=== PATIENT | female | born 1985 | race Caucasian/White ===

== ENCOUNTER 2016-07-12 02:51 | Observation (INO) | payer OTHER ==
[2016-07-12] VITALS (23 sets, daily range): BP systolic 97–147; BP diastolic 52–79; PULSE 66–112; RESP 12–27; Ht 167.6 cm; Wt 55.9 kg
[~2016-07-12] VITALS: Ht 167.6 cm; Wt 55.9 kg
[2016-07-12] MEDS ORDERED: SOD CHLORIDE 0.9% 500 ML IV STA (05:10)
[2016-07-12 05:47] LABS: ADD SCAN DIFF NO
[2016-07-12] MEDS ORDERED: MULTI PO (05:55)
[2016-07-12 06:18] LABS: ALBUMIN 4.5 g/dl (3.3-4.9); ALBUMIN/GLOBULIN RATIO 1.5; BILIRUBIN,INDIRECT 0.5 mg/dl (0-1.1); BILIRUBIN,TOTAL 0.5 mg/dl (0.2-1.3); CALCIUM 9.3 mg/dl (8.4-10.2); CREATININE 0.7 mg/dl (0.44-1.00); POTASSIUM 3.8 mmol/L (3.5-5.1); TOTAL PROTEIN 7.5 g/dl (6.1-8.1)
[2016-07-12 06:19] LABS: BASOPHILS % 0.2 % (0.0-2.0); EOSINOPHILS % 0.3 % (0.0-7.0); HEMOGLOBIN 12.6 g/dl (12.0-16.0); LYMPHOCYTES # 1.2 10^3/ul (0.8-2.9); LYMPHOCYTES % 9.9 % (15.0-51.0); MEAN CORPUSCULAR HEMOGLOBIN 30.2 pg (29.0-33.0); MEAN CORPUSCULAR HGB CONC 33.2 g/dl (32.0-37.0); MEAN CORPUSCULAR VOLUME 91.1 fl (82.0-101.0); MEAN PLATELET VOLUME 9.5 fl (7.4-10.4); MONOCYTE # 0.9 10^3/ul (0.3-0.9); NEUTROPHIL # 10.3 10^3/ul (1.6-7.5); NEUTROPHILS % 82.3 % (39.0-77.0); PLATELET COUNT 259 10^3/UL (140-415); RED BLOOD COUNT 4.17 10^6/ul (4.20-5.40); RED CELL DISTRIBUTION WIDTH 12.2 % (11.5-14.5); WHITE BLOOD COUNT 12.5 10^3/ul (4.8-10.8)
[2016-07-12] MEDS ORDERED: ONDANSETRON 4 MG INJ IV STA (06:22)
[2016-07-12] MEDS ORDERED: morphine 4 MG/ML VIAL IV STA (06:22)
[2016-07-12 06:29] LABS: ADD UMIC YES; URINE BILIRUBIN (Dip) NEGATIVE (NEGATIVE); URINE BLOOD (Dip) NEGATIVE (NEGATIVE); URINE COLOR LT. YELLOW (YELLOW); URINE GLUCOSE (Dip) NEGATIVE (NEGATIVE); URINE KETONES (Dip) NEGATIVE (NEGATIVE); URINE LEUKOCYTE ESTERASE (Dip) TRACE (NEGATIVE); URINE NITRITE (Dip) NEGATIVE (NEGATIVE); URINE TOTAL PROTEIN (Dip) NEGATIVE (NEGATIVE); URINE UROBILINOGEN (Dip) 0.2 E.U./dL (0.1-1.0)
[2016-07-12 06:51] LABS: URINE RBCS 0-2 /HPF (0)
[2016-07-12 06:52] LABS: BACTERIA,URINE RARE
--- NOTE | 2016-07-12 07:28 | RADRPT ---
PROCEDURE: CT abdomen and pelvis without contrast. CLINICAL INDICATION: Abdominal pain. TECHNIQUE: CT scan of the abdomen and pelvis without contrast was performed on a multi-slice CT [facility] . Oral contrast was also administered. Sagittal and coronal reformatted images were obtained from the axial source images. One or more of the following dose reduction techniques were used: - Automated exposure control. - Adjustment of the mA and/or kV according to patient size. Use of iterative reconstruction technique. DLP 326.0 mGycm. CTDIvol 5.8 mGy COMPARISON: None FINDINGS: The lung bases are clear. There is limited evaluation of the solid viscera for lack of IV contrast. There is a dilated tubular structure extending from the cecum consistent with a likely enlarged appe ndix and measures up to 11 mm in diameter. It has adjacent trace fat stranding and fluid. There is no CT evidence for free air free fluid or organized fluid collection to suggest perforation at this time. There is no evidence of an obstruction. The appendix is located posterior to the ascending colon. There is a fecal filled colon. There is normal density of the liver with no gross focal lesion or biliary ductal dilatation. The gallbladder is unremarkable without inflammation. The spleen is unremarkable without mass. The adrenal glands are within normal limits without mass. The kidneys are symmetric bilaterally with no evidence of renal or ureteral calculi. There is no hy dronephrosis or perinephric stranding. The pancreas is unremarkable without focal lesion or surrounding inflammatory changes. There are no enlarged lymph nodes. The aorta is unremarkable and there is no acute osseous abnormality. Degenerative changes are seen w ithin the lumbar spine. The uterus and adnexal structures within normal limits. IMPRESSION: Findings are consistent with acute appendicitis. The appendix is located posterior to the ascending colon and measures up to 11 millimeters in diameter. There is no CT evidence of perforation or abs cess at this time. There is a fecal filled colon. No evidence of renal or ureteral calculi or hydronephrosis. A call report was made to nurse Rodriguez at 07/12/2016 7:27:49 AM RPTAT: AA .Viridiana Ballesteros MD, Date Time Electronically viewed and signed by .Viridiana Ballesteros MD, on 07/12/2016 07:28 .[place]/
[2016-07-12] MEDS ORDERED: AMPICILLIN/SULB 3 GM/NS (PMX) 100 ML IVPB ONE (08:30)
[2016-07-12] MEDS ORDERED: ACETAMINOPHEN 325 MG TAB PO PRN ×3 (09:00→20:00)
[2016-07-12] MEDS ORDERED: ONDANSETRON 4 MG INJ IV PRN ×4 (09:00→20:00)
[2016-07-12] MEDS ORDERED: SOD CHLORIDE 0.9% 1,000 ML IV SCH (09:20)
[2016-07-12] MEDS ORDERED: BISACODYL 10 MG SUPP PR PRN (09:30)
[2016-07-12] MEDS ORDERED: DOCUSATE SODIUM 100 MG CAP PO PRN (09:30)
[2016-07-12] MEDS ORDERED: ACETAMINOPHEN 650 MG SUPP PR PRN (09:30)
[2016-07-12] MEDS ORDERED: HYDROCODONE/APAP (5/325) TAB PO PRN ×2 (09:30→20:00)
[2016-07-12] MEDS ORDERED: NACL 0.9% 3 ML SYG IV SCH (09:30)
[2016-07-12] MEDS ORDERED: morphine 2 MG INJ IV PRN (09:30)
[2016-07-12] MEDS ORDERED: MAGNESIUM HYDROXIDE 30ML CUP PO PRN (09:30)
--- NOTE | 2016-07-12 10:36 | ERA ---
ER Documentation Chief Complaint Date/Time DATE: 07/12/16 TIME: 10:35 Chief Complaint GEN AP SINCE YESTERDAY +N.V CHILLS HPI Patient is a 31-year-old female with no medical problems who presents with abdominal pain. The abdominal pain started last night at 6 PM. She felt like she could not get comfortable. She felt like the pain was in the upper abdomen. The pain is constant and bit better now. She has had no treatment as of yet. She denies vomiting or diarrhea. She has no fevers. ROS All systems reviewed and are negative except as per history of present illness. Medications Home Meds Reported Medications Multivitamins* (Theragran*) 1 Tab Tab, 1 TAB PO DAILY, TAB 07/12/16 Allergies Allergies: Coded Allergies: No Known Allergy (Unverified , 07/12/16) PMhx/Soc Medical and Surgical Hx: pt denies Medical Hx, pt denies Surgical Hx History of Surgery: No Anesthesia Reaction: No Hx Neurological Disorder: No Hx Respiratory Disorders: No Hx Cardiac Disorders: No Hx Psychiatric Problems: No Hx Miscellaneous Medical Probl: No Hx Alcohol Use: No Hx Substance Use: No Hx Tobacco Use: No Smoking Status: Never smoker FmHx Family History: diabetes Physical Exam Vitals Vital Signs Date Time Temp Pulse Resp B/P Pulse Ox O2 Delivery O2 Flow Rate FiO2 07/12/16 03:04 99.2 112 20 130/73 97 Physical Exam Const: Mild distress secondary to pain Head: Atraumatic Eyes: Normal Conjunctiva ENT: Normal External Ears, Nose and Mouth. Neck: Full range of motion..~ No meningismus. Resp: Clear to auscultation bilaterally Cardio: Regular rate and rhythm, no murmurs Abd: Soft, right lower quadrant tenderness to palpation with guarding Skin: No petechiae or rashes Back: No midline or flank tenderness Ext: No cyanosis, or edema Neur: Awake and alert Psych: Normal Mood and Affect Result Diagram: 07/12/16 0530 07/12/16 0530 Results 24 hrs Laboratory Tests Test 07/12/16 05:20 07/12/16 05:30 Urine Color LT. YELLOW Urine Clarity CLEAR Urine pH 7.5 Urine Specific Ros[place] 1.015 Urine Ketones NEGATIVE Urine Nitrite NEGATIVE Urine Bilirubin NEGATIVE Urine Urobilinogen 0.2 E.U./dL Urine Leukocyte Esterase TRACE Urine Microscopic RBC 0-2/HPF Urine Microscopic WBC 0-2/HPF Urine Epithelial Cells RARE Urine Bacteria RARE Urine Hemoglobin NEGATIVE Urine Glucose NEGATIVE% Urine Total Protein NEGATIVE White Blood Count 12.510^3/ul Red Blood Count 4.1710^6/ul Hemoglobin 12.6g/dl Hematocrit 38.0% Mean Corpuscular Volume 91.1fl Mean Corpuscular Hemoglobin 30.2pg Mean Corpuscular Hemoglobin Concent 33.2g/dl Red Cell Distribution Width 12.2% Platelet Count 49717^3/UL Mean Platelet Volume 9.5fl Neutrophils % 82.3% Lymphocytes % 9.9% Monocytes % 7.0% Eosinophils % 0.3% Basophils % 0.2% Nucleated Red Blood Cells % 0.0/100WBC Neutrophils # 10.310^3/ul Lymphocytes # 1.210^3/ul Monocytes # 0.910^3/ul Eosinophils # 0.010^3/ul Basophils # 0.010^3/ul Nucleated Red Blood Cells # 0.010^3/ul Sodium Level 138mmol/L Potassium Level 3.8mmol/L Chloride Level 107mmol/L Carbon Dioxide Level 22mmol/L Anion Gap 13 Blood Urea Nitrogen 11mg/dl Creatinine 0.70mg/dl Glucose Level 102mg/dl Calcium Level 9.3mg/dl Total Bilirubin 0.5mg/dl Direct Bilirubin 0.00mg/dl Indirect Bilirubin 0.5mg/dl Aspartate Amino Transf (AST/SGOT) 16IU/L Alanine Aminotransferase (ALT/SGPT) 24IU/L Alkaline Phosphatase 84IU/L Total Protein 7.5g/dl Albumin 4.5g/dl Globulin 3.00g/dl Albumin/Globulin Ratio 1.50 Lipase 57U/L Serum HCG, Qualitative NEGATIVE Current Medications Medications (Trade) Dose Ordered Sig/Heather Route PRN Reason Start Time Stop Time Status Last Admin Dose Admin Sodium Chloride (NS) 500 ml @ 500 mls/hr Q1H STAT IV 07/12/16 05:10 07/12/16 06:09 DC 07/12/16 05:43 Morphine Sulfate (morphine) 4 mg ONCE STAT IV 07/12/16 06:22 07/12/16 06:23 DC 07/12/16 07:13 Ondansetron HCl 4 mg 4 mg ONCE STAT IV 07/12/16 06:22 07/12/16 06:23 DC 07/12/16 07:12 Ampicillin Sodium/ Sulbactam Sodium (Unasyn 3gm/NS (Pmx)) 100 ml @ 100 mls/hr ONCE ONCE IVPB 07/12/16 08:30 07/12/16 09:29 DC 07/12/16 09:11 Ondansetron HCl (Zofran Inj) 4 mg BRIDGE ORDER PRN IV NAUSEA AND/OR VOMITING 07/12/16 09:00 07/12/16 09:28 DC Acetaminophen 650 mg 650 mg ER BRIDGE PRN PO MILD PAIN/FEVER 07/12/16 09:00 07/12/16 09:28 DC Ampicillin Sodium/ Sulbactam Sodium 100 ml @ 100 mls/hr Q6 IVPB 07/12/16 12:00 Sodium Chloride (NS) 1,000 ml @ 80 mls/hr [id number] IV 07/12/16 09:20 IV Flush (NS 3 ml) 3 ml PER PROTOCOL IV 07/12/16 09:30 Ondansetron HCl (Zofran Inj) 4 mg Q6H PRN IV NAUSEA AND/OR VOMITING 07/12/16 09:30 Acetaminophen (Tylenol Tab) 650 mg Q6H PRN PO PAIN LEVEL 1-3 OR FEVER 07/12/16 09:30 Acetaminophen (Tylenol Supp) 650 mg Q6H PRN [place] PAIN LEVEL 1-3 OR FEVER 07/12/16 09:30 Acetaminophen/ Hydrocodone Bitart ([place] (5/325)) 1 tab Q6H PRN PO MODERATE PAIN LEVEL 4-6 07/12/16 09:30 Acetaminophen/ Hydrocodone Bitart ([place] (5/325)) 2 tab Q6H PRN PO SEVERE PAIN LEVEL 7-10 07/12/16 09:30 Morphine Sulfate (morphine) 2 mg Q4H PRN IV SEVERE PAIN LEVEL 7-10 07/12/16 09:30 Docusate Sodium (Colace) 100 mg Q12H PRN PO CONSTIPATION 07/12/16 09:30 Magnesium Hydroxide (Milk Of Mag) 30 ml DAILY PRN PO CONSTIPATION 07/12/16 09:30 Bisacodyl (Dulcolax Supp) 10 mg DAILY PRN [place] CONSTIPATION 07/12/16 09:30 Famotidine (Pepcid Iv) 20 mg Q12 IV 07/12/16 21:00 Procedures/MDM CT of the abdomen pelvis shows acute appendicitis per radiology. Patient is a 31-year-old female presents with acute abdominal pain. She had right lower quadrant tenderness to palpation on exam. Her white blood cell count is elevated at 12.5. She had a CT scan which showed acute appendicitis. The patient was given Unasyn IV. I doubt sepsis at this time. I spoke with Dr. Can surgeon on-call who will see the patient in consultation. I spoke with Dr. Sharma the panel team for admission to a medical surgical bed as the [facility] has given authorization to admit to [facility]. Departure Diagnosis: Primary Impression: Abdominal pain Qualified Code: R10.31 - Right lower quadrant abdominal pain Additional Impression: Appendicitis Qualified Code: K35.80 - Acute appendicitis, unspecified acute appendicitis type Condition: SIS Cano MD July 12, 2016 10:36
[2016-07-12] MEDS ORDERED: AMPICILLIN/SULB 3 GM/NS (PMX) 100 ML IVPB SCH ×2 (12:00→14:00)
--- NOTE | 2016-07-12 15:06 | HP ---
Date/Time of Note Date/Time of Note DATE: 07/12/16 TIME: 14:55 Assessment/Plan VTE Prophylaxis VTE Prophylaxis Intervention: SCD's Assessment/Plan Chief Complaint/Hosp Course Impression and plan 1. Acute appendicitis. Will place patient on IV hydration and antibiotics. Continue with analgesics. Await surgeon input. Continue inpatient monitoring. 2. Leukocytosis secondary to #1. Remains with low-grade fever transfer to at time this time. Will provide with antipyretics as needed Admission process 40 minutes Discussed plan of care with Dr. Sharma Problems: HPI/ROS Admit Date/Time Admit Date/Time July 12, 2016 at 08:46 Hx of Present Illness this is a 31-year-old female with no reported past medical history came to [facility] due to reports of abdominal pain. According to the patient she started to have abdominal pain around 5 PM one day prior to admission. She reports she was driving home and was in her normal state of health. She did report that she had worsening abdominal pain more notable on her right lower abdominal quadrant that radiated to her left side. No nausea vomiting associated with it. She denied any chest pain or fevers or any shortness of breath or any associated symptoms. Her pain got worse with eating and as such she came to [facility] for further evaluation. Upon examination she had a CT scan of abdomen and pelvis that did show clinical findings that consistent of appendicitis. She was placed on IV hydration and provided with appropriate analgesics and antibiotics. Currently the patient does report that her pain is 3 out of 10 in intensity. She reports that her relief. We will evaluate her for the aformentiond issues ROS 12 point review of systems obtained and entirely negative that mentioned in the history of present illness PMH/Family/Social Past Medical History Medical/surgical history 1. Reported eye surgery at age 6 on right side Family History Significant Family History: other (Mother: Diabetes, father: CAD) Social History Alcohol Use: none Smoking Status: Never smoker Drug Use: none Exam/Review of Systems Vital Signs Vitals Vital Signs Date Time Temp Pulse Resp B/P Pulse Ox O2 Delivery O2 Flow Rate FiO2 07/12/16 14:00 99.2 95 20 112/66 100 Exam Constitutional: alert, oriented Psych: nl mood/affect Head: normocephalic Eyes: nl conjunctiva Neck: non-tender, supple Respiratory: clear to auscultation Cardiovascular: regular rate and rhythm Gastrointestinal: soft, tender (More notably on right lower abdominal quadrant) Musculoskeletal: nl extremities to inspection Extremities: normal pulses Neurological: L[employer]CH[employer] WORKER II-XII intact, nl mental status, nl speech Skin: nl turgor Labs Result Diagram: 07/12/16 0530 07/12/16 0530 Medications Medications Current Medications Sodium Chloride (NS) 1,000 ml @ 80 mls/hr [id number] IV Last administered on t 12:30; Admin Dose 80 MLS/HR; Start 07/12/16 at 09:20 Ondansetron HCl (Zofran Inj) 4 mg Q6H PRN IV NAUSEA AND/OR VOMITING; Start 07/12 at 09:30 Acetaminophen (Tylenol Tab) 650 mg Q6H PRN PO PAIN LEVEL 1-3 OR FEVER; Start at 09:30 Acetaminophen (Tylenol Supp) 650 mg Q6H PRN [place] PAIN LEVEL 1-3 OR FEVER; Start 07/12/16 at 09:30 Acetaminophen/ Hydrocodone Bitart ([place] (5/325)) 1 tab Q6H PRN PO MODERATE PAIN LEVEL 4-6; Start 07/12/16 at 09:30 Acetaminophen/ Hydrocodone Bitart ([place] (5/325)) 2 tab Q6H PRN PO SEVERE PAIN LEVEL 7-10; Start 07/12/16 at 09:30 Morphine Sulfate (morphine) 2 mg Q4H PRN IV SEVERE PAIN LEVEL 7-10; Start at 09:30 Docusate Sodium (Colace) 100 mg Q12H PRN PO CONSTIPATION; Start 07/12/16 at 09: 30 Magnesium Hydroxide (Milk Of Mag) 30 ml DAILY PRN PO CONSTIPATION; Start at 09:30 Bisacodyl (Dulcolax Supp) 10 mg DAILY PRN [place] CONSTIPATION; Start 07/12/16 at 09: 30 Famotidine 20 mg 20 mg Q12 IV ; Start 07/12/16 at 21:00 Ampicillin Sodium/ Sulbactam Sodium (Unasyn 3gm/NS (Pmx)) 100 ml @ 100 mls/hr Q6 IVPB ; Start 07/12/16 at 14:00 JONNIE ZAZUETA July 12, 2016 15:05
[2016-07-12] MEDS ORDERED: LIDOCAINE 1% (MPF) 30 ML INJ ONE (19:20)
[2016-07-12] MEDS ORDERED: ROCURONIUM 50 MG INJ ONE (19:26)
[2016-07-12] MEDS ORDERED: MIDAZOLAM 1 MG/ML 2 ML INJ ONE ×2 (19:26→20:20)
[2016-07-12] MEDS ORDERED: PROPOFOL 20 ML ONE (19:26)
[2016-07-12] MEDS ORDERED: METOCLOPRAMIDE 10 MG INJ ONE (19:27)
[2016-07-12] MEDS ORDERED: HYDROmorphONE 2 MG/ML SYG ONE (19:42)
[2016-07-12] MEDS ORDERED: KETOROLAC 30 MG INJ ONE (19:55)
[2016-07-12] MEDS ORDERED: GLYCOPYRROLATE 0.4 MG INJ ONE (19:55)
[2016-07-12] MEDS ORDERED: NEOSTIGMINE 3 MG/3 ML SYRINGE ONE (19:55)
[2016-07-12] MEDS ORDERED: BUPIVACAINE 0.25%/EPI (SDV) 30 ML INJ INJ ONE (19:57)
[2016-07-12] MEDS ORDERED: MEPERIDINE 25 MG INJ IV PRN (20:00)
[2016-07-12] MEDS ORDERED: HYDROmorphONE (0.2 MG/ML) 10ML SYG IV PRN ×3 (20:00)
[2016-07-12] MEDS ORDERED: DIPHENHYDRAMINE 50 MG INJ IV PRN (20:00)
[2016-07-12] MEDS ORDERED: METOCLOPRAMIDE 10 MG INJ IV PRN (20:00)
[2016-07-12] MEDS ORDERED: MIDAZOLAM 1 MG/ML 2 ML INJ IV ONE (20:30)
[2016-07-12] MEDS: FAMOTIDINE 20 MG INJ IV SCH (22:51)
[2016-07-12] MEDS: D5-NS + KCL 20 MEQ 1,000 ML IV SCH (22:52)
[2016-07-12] MEDS: PIPER-TAZO 3.375 GM IV (PMX) 100 ML IVPB SCH (23:52)
[2016-07-13] MEDS: AMPICILLIN/SULB 3 GM/NS (PMX) 100 ML IVPB SCH ×2 (00:42→06:12)
[2016-07-13] MEDS: D5-NS + KCL 20 MEQ 1,000 ML IV SCH ×2 (05:04→17:39)
[2016-07-13] MEDS: PIPER-TAZO 3.375 GM IV (PMX) 100 ML IVPB SCH ×4 (05:34→23:46)
[2016-07-13] MEDS: ENOXAPARIN 40 MG/0.4 ML SYG SC SCH (06:41)
[2016-07-13 06:46] LABS: ADD SCAN DIFF NO
[2016-07-13 06:48] LABS: BASOPHILS % 0.3 % (0.0-2.0); EOSINOPHILS % 0.4 % (0.0-7.0); HEMATOCRIT 30.4 % (37.0-47.0); HEMOGLOBIN 10.1 g/dl (12.0-16.0); LYMPHOCYTES # 1.1 10^3/ul (0.8-2.9); LYMPHOCYTES % 14.9 % (15.0-51.0); MEAN CORPUSCULAR HEMOGLOBIN 30.5 pg (29.0-33.0); MEAN CORPUSCULAR HGB CONC 33.2 g/dl (32.0-37.0); MEAN CORPUSCULAR VOLUME 91.8 fl (82.0-101.0); MEAN PLATELET VOLUME 9.4 fl (7.4-10.4); MONOCYTE # 0.7 10^3/ul (0.3-0.9); NEUTROPHIL # 5.8 10^3/ul (1.6-7.5); NEUTROPHILS % 75.3 % (39.0-77.0); PLATELET COUNT 193 10^3/UL (140-415); RED BLOOD COUNT 3.31 10^6/ul (4.20-5.40); WHITE BLOOD COUNT 7.7 10^3/ul (4.8-10.8)
[2016-07-13 07:09] LABS: ALBUMIN 3.1 g/dl (3.3-4.9); ALBUMIN/GLOBULIN RATIO 1.24; BILIRUBIN,INDIRECT 0.6 mg/dl (0-1.1); BILIRUBIN,TOTAL 0.6 mg/dl (0.2-1.3); CALCIUM 8.2 mg/dl (8.4-10.2); CREATININE 0.64 mg/dl (0.44-1.00); MAGNESIUM 1.9 mg/dl (1.7-2.5); POTASSIUM 3.8 mmol/L (3.5-5.1); TOTAL PROTEIN 5.6 g/dl (6.1-8.1)
[2016-07-13 07:26] VITALS: BP 90/53; RESP 18
[2016-07-13 07:28] LABS: THYROID STIMULATING HORMONE 0.675 MIU/L (0.465-4.680)
[2016-07-13] MEDS: FAMOTIDINE 20 MG INJ IV SCH ×2 (08:51→20:35)
[2016-07-13] MEDS: morphine 2 MG INJ IV PRN ×2 (09:04→20:40)
[2016-07-13] MEDS ORDERED: DOCU-216 PO (11:01)
[2016-07-13] MEDS ORDERED: HYDR-3498 PO (11:01)
--- NOTE | 2016-07-13 11:02 | PDOCDIS ---
Discharge Instructions DIAGNOSIS Discharge Diagnosis: 1. ACUTE APPENDICITIS CONDITION Patient Condition: Stable HOME CARE INSTRUCTIONS: Special Diet: Clear liquid FOLLOW UP/APPOINTMENTS Appointments 1. Follow up with Dr. Edgardo Can within one week JONNIE ZAZUETA July 13, 2016 11:02
--- NOTE | 2016-07-13 11:56 | DS ---
Date/Time of Note Date/Time of Note DATE: 07/13/16 TIME: 11:53 Discharge Summary Admission/Discharge Info Admit Date/Time July 12, 2016 at 08:46 Discharge Date/Time Final Diagnosis 1. Acute appendicitis Patient Condition: Stable Consults Dr. Edgardo Can Hx of Present Illness this is a 31-year-old female with no reported past medical history came to [facility] due to reports of abdominal pain. According to the patient she started to have abdominal pain around 5 PM one day prior to admission. She reports she was driving home and was in her normal state of health. She did report that she had worsening abdominal pain more notable on her right lower abdominal quadrant that radiated to her left side. No nausea vomiting associated with it. She denied any chest pain or fevers or any shortness of breath or any associated symptoms. Her pain got worse with eating and as such she came to [facility] for further evaluation. Upon examination she had a CT scan of abdomen and pelvis that did show clinical findings that consistent of appendicitis. She was placed on IV hydration and provided with appropriate analgesics and antibiotics. Currently the patient does report that her pain is 3 out of 10 in intensity. She reports that her relief. We will evaluate her for the aformentiond issues Hospital Course This is a 31-year-old female with no reported past medical history came to [facility] due to reports of abdominal pain for 1 day duration. Patient did report that her pain initially started 5 PM the day prior to admission. She stated that she was in her normal state of health and she was driving home when the pain occurred. She had worse pain with eating. She went to [facility] for further evaluation. Upon examination she did have CT scan of the abdomen and pelvis that did show findings consistent with appendicitis. She was placed on IV hydration and antibiotics. She did undergo laparoscopic appendectomy and did have good response. She did have less pain on abdomen. She was able to tolerate oral intake on the day of her discharge. She was instructed to follow-up with surgeon within a week. The plan of care was discussed with the patient and patient did verbalize her understanding. On the day of discharge patient was in stable condition Discussed plan of care with Dr. Sharma Patient's process 40 minutes Home Meds Active Scripts Docusate Sodium (Dok) 100 Mg Capsule, 100 MG PO Q12H Y for CONSTIPATION, #30 CAP Prov:JONNIE ZAZUETA 07/13/16 Reported Medications Multivitamins* (Theragran*) 1 Tab Tab, 1 TAB PO DAILY, TAB 07/12/16 Follow-up Plan CONDITION Patient Condition: Stable HOME CARE INSTRUCTIONS: Special Diet: Clear liquid FOLLOW UP/APPOINTMENTS Appointments 1. Follow up with Dr. Edgardo Can within one week Pending Labs Laboratory Tests Test 07/13/16 05:45 White Blood Count 7.710^3/ul (4.8-10.8) Red Blood Count 3.3110^6/ul (4.20-5.40) Hemoglobin 10.1g/dl (12.0-16.0) Hematocrit 30.4% (37.0-47.0) Mean Corpuscular Volume 91.8fl (82.0-101.0) Mean Corpuscular Hemoglobin 30.5pg (29.0-33.0) Mean Corpuscular Hemoglobin Concent 33.2g/dl (32.0-37.0) Red Cell Distribution Width 12.0% (11.5-14.5) Platelet Count 28392^3/UL (140-415) Mean Platelet Volume 9.4fl (7.4-10.4) Neutrophils % 75.3% (39.0-77.0) Lymphocytes % 14.9% (15.0-51.0) Monocytes % 9.0% (0.0-11.0) Eosinophils % 0.4% (0.0-7.0) Basophils % 0.3% (0.0-2.0) Nucleated Red Blood Cells % 0.0/100WBC (0.0-0.0) Neutrophils # 5.810^3/ul (1.6-7.5) Lymphocytes # 1.110^3/ul (0.8-2.9) Monocytes # 0.710^3/ul (0.3-0.9) Eosinophils # 0.010^3/ul (0.0-0.5) Basophils # 0.010^3/ul (0.0-0.1) Nucleated Red Blood Cells # 0.010^3/ul (0.0-0.0) Sodium Level 136mmol/L (135-144) Potassium Level 3.8mmol/L (3.5-5.1) Chloride Level 109mmol/L (97-110) Carbon Dioxide Level 22mmol/L (21-31) Anion Gap 9 (8-16) Blood Urea Nitrogen 6mg/dl (7-20) Creatinine 0.64mg/dl (0.44-1.00) Glucose Level 106mg/dl (70-220) Hemoglobin A1c 5.0% (0-5.9) Calcium Level 8.2mg/dl (8.4-10.2) Magnesium Level 1.9mg/dl (1.7-2.5) Total Bilirubin 0.6mg/dl (0.2-1.3) Direct Bilirubin 0.00mg/dl (0.00-0.20) Indirect Bilirubin 0.6mg/dl (0-1.1) Aspartate Amino Transf (AST/SGOT) 13IU/L (15-46) Alanine Aminotransferase (ALT/SGPT) 21IU/L (13-69) Alkaline Phosphatase 51IU/L (42-121) Total Protein 5.6g/dl (6.1-8.1) Albumin 3.1g/dl (3.3-4.9) Globulin 2.50g/dl (1.3-3.2) Albumin/Globulin Ratio 1.24 Triglycerides Level 47mg/dl (0-149) Cholesterol Level 114mg/dl (100-200) LDL Cholesterol, Calculated 68mg/dl HDL Cholesterol 37mg/dl (34-82) Cholesterol/HDL Ratio 3.0RATIO Thyroid Stimulating Hormone (TSH) 0.675MIU/L (0.465-4.680) Free Thyroxine Index 3.74ug/ml (0.65-3.89) Thyroxine (T4) 8.9ug/dl (5.5-11.0) Triiodothyronine (T3) Uptake 42.0% (23.5-40.5) JONNIE ZAZUETA July 13, 2016 11:56
[2016-07-13 19:45] VITALS: BP 100/62; RESP 16
[2016-07-13] MEDS: HYDROCODONE/APAP (5/325) TAB PO PRN (23:46)
[2016-07-14] MEDS: D5-NS + KCL 20 MEQ 1,000 ML IV SCH ×2 (06:02→11:34)
[2016-07-14] MEDS: PIPER-TAZO 3.375 GM IV (PMX) 100 ML IVPB SCH ×2 (06:02→12:00)
[2016-07-14] MEDS: ENOXAPARIN 40 MG/0.4 ML SYG SC SCH (06:07)
[2016-07-14 07:26] VITALS: BP 94/59; RESP 18
[2016-07-14] MEDS: FAMOTIDINE 20 MG INJ IV SCH (08:49)
[2016-07-14] MEDS: HYDROCODONE/APAP (5/325) TAB PO PRN (08:50)
[2016-07-14 10:28] LABS: ADD SCAN DIFF NO
[2016-07-14 10:34] LABS: BASOPHILS % 0.4 % (0.0-2.0); EOSINOPHILS # 0.1 10^3/ul (0.0-0.5); EOSINOPHILS % 1.4 % (0.0-7.0); HEMATOCRIT 31.5 % (37.0-47.0); HEMOGLOBIN 9.9 g/dl (12.0-16.0); LYMPHOCYTES # 1.4 10^3/ul (0.8-2.9); LYMPHOCYTES % 24.7 % (15.0-51.0); MEAN CORPUSCULAR HEMOGLOBIN 29.7 pg (29.0-33.0); MEAN CORPUSCULAR HGB CONC 31.4 g/dl (32.0-37.0); MEAN CORPUSCULAR VOLUME 94.6 fl (82.0-101.0); MEAN PLATELET VOLUME 9.7 fl (7.4-10.4); MONOCYTE # 0.5 10^3/ul (0.3-0.9); MONOCYTES % 9.2 % (0.0-11.0); NEUTROPHIL # 3.6 10^3/ul (1.6-7.5); NEUTROPHILS % 63.9 % (39.0-77.0); PLATELET COUNT 195 10^3/UL (140-415); RED BLOOD COUNT 3.33 10^6/ul (4.20-5.40); RED CELL DISTRIBUTION WIDTH 12.4 % (11.5-14.5); WHITE BLOOD COUNT 5.6 10^3/ul (4.8-10.8)
[2016-07-14 10:44] LABS: POTASSIUM 3.7 mmol/L (3.5-5.1)
[2016-07-14 10:47] LABS: CREATININE 0.72 mg/dl (0.44-1.00)
[2016-07-14 10:48] LABS: CALCIUM 8.2 mg/dl (8.4-10.2)
== END 2016-07-14 13:00 | disposition home or self-care (01) ==
LOC: E/R 02:51 → MS2 08:46
PROVIDERS: ADMIT Internal Medicine; ATTEND Internal Medicine
DX: K35.80 Unspecified acute appendicitis (principal); Z83.3 Family history of diabetes mellitus; Z82.49 Family history of ischemic heart disease and other diseases of the circulatory system
CPT/HCPCS: 36415; 44970; 74176; 80048; 80053; 80061; 81001; 83036; 83690; 83735; 84436; 84443; 84479; 84703; 85025; 87040; 87086; 88304; 96361; 96365; 96366; 96372; 96375; 99285; G0378; J0295; J1170; J1650; J1885; J2250; J2270; J2405; J2543; J2710; J2765; J3480; J7030; J7040; 81003

== ENCOUNTER 2016-07-15 23:11 | Emergency (ER) | payer OTHER ==
[~2016-07-15] VITALS: Ht 167.6 cm; Wt 57.0 kg
[~2016-07-15 23:11] MED LIST: DOCU-216 PO; HYDR-3498 PO; MULTI PO
[2016-07-15 23:15] VITALS: Ht 167.6 cm; Wt 57.0 kg
--- NOTE | 2016-07-16 01:58 | ERD ---
ER Documentation Chief Complaint Date/Time DATE: 07/16/16 TIME: 01:55 Chief Complaint constipation since x 5 days ago, sp appendectomy on07/12/16 HPI This is a 31-year-old female presenting to emergency department for constipation and bloating 3 days. Patient was here recently for appendicitis with appendectomy on 07/12/2016. Patient states she was given Percocet and Colace postsurgery. Patient continued to have difficulty having a bowel movement and spoke with her surgeon who suggested taking milk of magnesia. Patient continues to have difficulty having a bowel movement. No nausea or vomiting. Patient states she has continued to take Percocet due to pain after appendectomy. No fevers or chills. ROS All systems reviewed and are negative except as per history of present illness. Medications Home Meds Active Scripts Na Phos,M-B/Na Phos,Di-Ba (Fleet Enema Extra) 230 Ml Enema, 230 ML RC DAILY, #1 ENEMA Prov:BRANDON NEGRO NP 07/16/16 Polyethylene Glycol* (Miralax*) 17 Gm Powd.pack, 17 GM PO DAILY, #30 PACKET Prov:BRANDON NEGRO NP 07/16/16 Docusate Sodium (Dok) 100 Mg Capsule, 100 MG PO Q12H Y for CONSTIPATION, #30 CAP Prov:JONNIE ZAZUETA 07/13/16 Hydrocodone Bit-Acetaminophen (Hydrocodone Bit-APAP) 5-325MG Tablet, 1 TAB PO Q6H Y for PAIN LEVEL 4-7, #30 TAB Prov:JONNIE ZAZUETA 07/13/16 Reported Medications Multivitamins* (Theragran*) 1 Tab Tab, 1 TAB PO DAILY, TAB 07/12/16 Allergies Allergies: Coded Allergies: No Known Allergy (Unverified , 07/12/16) PMhx/Soc Medical and Surgical Hx: pt denies Medical Hx, pt denies Surgical Hx History of Surgery: Yes (Appendectomy) Anesthesia Reaction: No Hx Neurological Disorder: No Hx Respiratory Disorders: No Hx Cardiac Disorders: No Hx Psychiatric Problems: No Hx Miscellaneous Medical Probl: No Hx Alcohol Use: No Hx Substance Use: No Hx Tobacco Use: No Smoking Status: Never smoker Physical Exam Vitals Vital Signs Date Time Temp Pulse Resp B/P Pulse Ox O2 Delivery O2 Flow Rate FiO2 07/16/16 03:02 98.1 92 20 118/68 94 Room Air 07/15/16 23:15 98.7 89 20 113/80 98 Physical Exam Const: No acute distress, alert Head: Atraumatic Eyes: Normal Conjunctiva ENT: Normal External Ears, Nose and Mouth. Neck: Full range of motion..~ No meningismus. Resp: Clear to auscultation bilaterally Cardio: Regular rate and rhythm, no murmurs Abd: Soft, non tender, non distended. Normal bowel sounds Skin: No petechiae or rashes Back: No midline or flank tenderness Ext: No cyanosis, or edema Neur: Awake and alert Psych: Normal Mood and Affect Results 24 hrs Current Medications Medications (Trade) Dose Ordered Sig/Heather Route PRN Reason Start Time Stop Time Status Last Admin Dose Admin Sodium Biphosphate/ Sodium Phosphate (Fleet Enema) 133 ml ONCE ONCE IA 07/16/16 02:00 07/16/16 02:01 DC Procedures/MDM Patient: YIFAN OLIVEIRA : 1985 Age: 31 Sex: F MR #: [id number] DOS: 07/16/16 0000 Ordering MD: BRANDON NEGRO NP Location: [facility] Room/Bed: PROCEDURE: Abdomen x-ray CLINICAL INDICATION: Constipation for 5 days. TECHNIQUE: 2 frontal views of the abdomen. COMPARISON: None. FINDINGS: Nonobstructive and nonspecific bowel gas pattern. Lung bases are clear. No unusual calcifications are identified over the abdomen. IMPRESSION: Nonobstructive nonspecific bowel gas pattern of the abdomen. MDM: 31-year-old female presents emergency department for constipation status post appendectomy 3 days ago. Patient has bloating and abdominal discomfort due to constipation. Patient has been taking Percocet and Colace. Patient has also tried milk of magnesia without symptom relief. Abdominal physical exam is overall unremarkable. No guarding or severe tenderness. Patient appears alert and smiling throughout exam. X-ray KUB reviewed by radiologist as nonobstructive nonspecific bowel gas pattern of the abdomen. Consulted Dr. Wilde regarding this patient. We agree that patient is appropriate for outpatient management. Low suspicion for bowel obstruction or postsurgical adhesions or abscess. Patient likely has constipation secondary to pain medication use after surgery. Patient is appropriate for outpatient management will be given prescription for Fleet enema and MiraLAX. Instructed patient to return to ED in 8 hours for repeat abdomen assessment. Return to ED for any high fever, chest pain, difficulty breathing, shortness breath, wheezing, vomiting, diarrhea, abdominal pain or any new or worsening symptoms. Patient verbalizes understanding. All questions answered at discharge. Departure Diagnosis: Primary Impression: Constipation Constipation type: drug induced constipation Qualified Code: K59.03 - Drug- induced constipation Condition: Stable BRANDON NEGRO NP July 16, 2016 01:58
[2016-07-16] MEDS ORDERED: NA PHOSPHATE/BIPHOS 133 ML ENEMA PR ONE (02:00)
--- NOTE | 2016-07-16 02:10 | RADRPT ---
PROCEDURE: Abdomen x-ray CLINICAL INDICATION: Constipation for 5 days. TECHNIQUE: 2 frontal views of the abdomen. COMPARISON: None. FINDINGS: Nonobstructive and nonspecific bowel gas pattern. Lung bases are clear. No unusual calcifications are identified over the abdomen. IMPRESSION: Nonobstructive nonspecific bowel gas pattern of the abdomen. RPTAT: [facility] Physician Juan Pablo Date Time Electronically viewed and signed by Physician Juan Pablo on 07/16/2016 02:10 RS/
[2016-07-16] MEDS ORDERED: NA P230E RC (02:27)
[2016-07-16] MEDS ORDERED: POLY17PO6 PO (02:27)
[2016-07-16 03:02] VITALS: BP 118/68; PULSE 92; RESP 20; TEMP 98.1
== END 2016-07-16 03:05 | disposition home or self-care (01) ==
LOC: FTE 23:11
DX: K59.03 Drug induced constipation (principal)
CPT/HCPCS: 74000